=== PATIENT | male | born 2000 | race Caucasian/White ===

== ENCOUNTER 2021-01-05 02:44 | Outpatient (CLI) | payer MEDICAID, SELFPAY ==
[2021-01-05 12:13] LABS: ESR 2 mm/hr (0-15)
[2021-01-05 12:14] LABS: Abs Immature Grans 0.04 10^3/uL (0.0-0.06); Absolute Basophil Count 0.06 10^3/uL (0.0-0.2); Absolute Eosinophil Count 0.22 10^3/uL (0.0-0.7); Absolute Lymphocyte Count 1.62 10^3/uL (1.2-3.4); Absolute Monocyte Count 1.16 10^3/uL (0.1-0.8); Absolute Neutrophil Count 6.05 10^3/uL (1.2-6.7); Basophils % 0.7; Eosinophils % 2.4; HCT 45.5 % (40.0-50.0); HGB 15.1 g/dL (13.5-17.5); Immature Grans % 0.4; Lymphocytes % 17.7; MCH 30.3 pg (27.0-33.0); MCHC 33.2 % (32.0-36.0); MCV 91.2 fL (80-95); MPV 10.1 fL (8.0-11.0); Monocytes % 12.7; Neutrophils % 66.1; Nucleated RBC 0 %; Platelet Count 261 10^3/uL (130-400); RBC 4.99 10^6/uL (4.36-5.78); RDW 11.9 % (11.8-14.1); RDW-SD 39.4 fL; WBC 9.15 10^3/uL (4.4-10.8)
[2021-01-05 12:32] LABS: ALT 38 U/L (16-63); AST 23 U/L (15-37); Albumin 4.4 g/dL (3.4-5.0); Alkaline Phosphatase 81 U/L (46-116); BUN 14 mg/dL (7-18); Bilirubin, Total 0.7 mg/dL (0.2-1.0); CREATININE 1.2 mg/dL (0.70-1.30); Calcium 9.3 mg/dL (8.5-10.1); Chloride 103 mmol/L (98-107); Glucose 90 mg/dL (74-106); Potassium 3.8 mmol/L (3.5-5.1); Sodium 143 mmol/L (136-145); TSH (W/Ref FT4) 3.68 uIU/mL (0.36-3.74); Total Protein 7.6 g/dL (6.4-8.2)
[2021-01-09 11:35] LABS: IgA 234 mg/dL (85-499); Interpretation (See Note); Tissue Transglutaminase IgA <1.2 U/mL (<4.0)
== END 2021-01-05 02:45 | disposition home or self-care (01) ==
LOC: LOS 02:45
PROVIDERS: PCP Pediatrics; Visit Provider Pediatrics
DX: R15.2 Fecal urgency (principal); R10.9 Unspecified abdominal pain
CPT/HCPCS: 36415; 80053; 82784; 83516; 85652; 84443; 85025